=== PATIENT | male | born 1955 | race Caucasian/White ===

== ENCOUNTER 2017-06-16 07:21 | Inpatient (IN) | payer OTHER ==
[~2017-06-16] VITALS: Ht 172.7 cm; Wt 132.0 kg
[2017-06-16 08:01] LABS: BASOPHIL (%) 0.6 % (0-1); EOSINOPHIL (%) 3.2 % (0-5); EOSINOPHIL COUNT 0.2 K/uL (0-0.3); HEMATOCRIT 39.6 % (38.0-50.0); HEMOGLOBIN 13.2 G/DL (12.5-16.6); IMMATURE GRANULOCYTE (%) 0.4 % (0.0-0.7); LYMPHOCYTE (%) 17.9 % (15-42); LYMPHOCYTE COUNT 0.9 K/uL (1.0-2.8); MCH 28.6 PG (29.0-34.0); MCHC 33.3 G/DL (30.0-36.0); MCV 85.7 FL (86-99); MONOCYTE (%) 10.7 % (3-12); MONOCYTE COUNT 0.5 K/uL (0-0.8); NEUTROPHIL (%) 67.2 % (45-76); NEUTROPHIL COUNT 3.4 K/uL (1.8-6.4); PLATELET COUNT 138 K/uL (156-360); RBC DIS.WIDTH-CV 16.9 % (11.8-14.6); RBC DIS.WIDTH-SD 53.1 % (39-53); RED BLOOD COUNT 4.62 M/uL (4.00-5.50)
[2017-06-16 08:05] LABS: INTER. NORMALIZED RATIO 1.5
[2017-06-16 08:08] LABS: PTT 34.6 SEC (25-37)
[2017-06-16 08:11] LABS: CHLORIDE 100 mEq/L (99-109); POTASSIUM 3.4 mEq/L (3.7-5.4); SODIUM 134 mEq/L (136-147)
[2017-06-16 08:13] LABS: GLUCOSE 142 mg/dL (70-99)
[2017-06-16 08:17] LABS: CREATININE 0.8 mg/dL (0.6-1.3)
[2017-06-16 08:18] LABS: UREA NITROGEN (BUN) 11 mg/dL (9-23)
[2017-06-16 08:21] LABS: TROP-I INTERPRETATION NEGATIVE; TROPONIN-I 0.02 ng/mL (0.0-0.30)
[2017-06-16 08:23] LABS: GFR ESTIMATE (CALCULATED) > 59 mL/min/ (58.99-99999)
[2017-06-16 11:00] LABS: APPEARANCE CLEAR ((CLEAR)); BILIRUBIN NEGATIVE; BLOOD SMALL; COLOR COLORLESS ((YELLOW)); GLUCOSE (STRIP) NEGATIVE; KETONES NEGATIVE; LEUKOCYTES NEGATIVE; NITRITE NEGATIVE; PROTEIN (STRIP) NEGATIVE; SPECIFIC GRAVITY 1.004 (1.000-1.030); UROBILINOGEN 0.2 MG/DL (0.2-1.0)
[2017-06-16 11:03] LABS: BACTERIA NONE SEEN /HPF; EPITHELIAL CELLS RARE /HPF; MUCUS NONE SEEN /LPF; RED BLOOD CELLS 0-5 /HPF (0-5); UCUL ADDED? NO; WHITE BLOOD CELLS NONE SEEN /HPF (0-5)
[2017-06-16] MEDS ORDERED: LOSARTAN-HCTZ1 EAC2 PO (11:18)
[2017-06-16] MEDS ORDERED: FUROSEMIDE80 MG PO (11:18)
[2017-06-16] MEDS ORDERED: CARVEDILOL25 MG PO (11:18)
[2017-06-16] MEDS ORDERED: METFORMIN HCL500 MG PO (11:18)
[2017-06-16 20:45] VITALS: BP 140/87
[2017-06-16 21:00] VITALS: BP 140/87
[2017-06-17 00:33] VITALS: BP 135/80
[2017-06-17 04:09] VITALS: BP 130/77
[2017-06-17 05:14] LABS: HEMATOCRIT 38.4 % (38.0-50.0); HEMOGLOBIN 12.4 G/DL (12.5-16.6); MCHC 32.3 G/DL (30.0-36.0); MCV 86.7 FL (86-99); PLATELET COUNT 146 K/uL (156-360); RBC DIS.WIDTH-CV 16.9 % (11.8-14.6); RBC DIS.WIDTH-SD 54.6 % (39-53); RED BLOOD COUNT 4.43 M/uL (4.00-5.50); WHITE BLOOD COUNT 4.7 K/uL (4.1-10.2)
[2017-06-17 05:49] LABS: CHLORIDE 98 MEQ/L (99-109); CREATININE 0.9 MG/DL (0.6-1.3); GFR ESTIMATE (CALCULATED) > 59 mL/min/ (58.99-99999); GLUCOSE 112 mg/dL (70-99); POTASSIUM 3.3 MEQ/L (3.7-5.4); UREA NITROGEN (BUN) 12 mg/dL (9-23)
[2017-06-17 05:51] LABS: SODIUM 141 MEQ/L (136-147)
[2017-06-17 08:10] VITALS: BP 132/92
[2017-06-17 12:06] VITALS: BP 139/87
[2017-06-17 14:31] LABS: TROP-I INTERPRETATION NEGATIVE; TROPONIN-I 0.01 ng/mL (0.0-0.30)
[2017-06-17 16:35] VITALS: BP 122/79
[2017-06-17 23:44] VITALS: BP 107/55
[2017-06-18 04:22] VITALS: BP 138/76
[2017-06-18 05:17] LABS: HEMATOCRIT 40.5 % (38.0-50.0); HEMOGLOBIN 13.1 G/DL (12.5-16.6); MCH 27.8 PG (29.0-34.0); MCHC 32.3 G/DL (30.0-36.0); PLATELET COUNT 174 K/uL (156-360); RBC DIS.WIDTH-CV 16.7 % (11.8-14.6); RBC DIS.WIDTH-SD 53.1 % (39-53); RED BLOOD COUNT 4.71 M/uL (4.00-5.50); WHITE BLOOD COUNT 4.7 K/uL (4.1-10.2)
[2017-06-18 05:45] LABS: CHLORIDE 98 MEQ/L (99-109); CREATININE 0.9 MG/DL (0.6-1.3); GFR ESTIMATE (CALCULATED) > 59 mL/min/ (58.99-99999); GLUCOSE 126 mg/dL (70-99); POTASSIUM 3.1 MEQ/L (3.7-5.4); SODIUM 141 MEQ/L (136-147); UREA NITROGEN (BUN) 18 mg/dL (9-23)
[2017-06-18 06:22] LABS: ABS NEUTROPHIL COUNT 3.3; ANISOCYTOSIS 1+; ATYPICAL LYMPHOCYTE 1.7 %; BAND NEUTROPHILS 4.4 % (0-8.0); BASOPHILS 0.9 %; EOSINOPHIL ABS CT 0; EOSINOPHILS 0.9 % (0-5.0); LYMPHOCYTES 22.8 % (15.0-45.0); MONOCYTES 4.4 % (0-9.0); PLAT.SUFFICIENCY ADEQUATE; SEG.NEUTROPHILS 64.9 % (46.0-76.0)
[2017-06-18 07:34] VITALS: BP 124/80
[2017-06-18 12:04] VITALS: BP 110/63
[2017-06-18 15:09] VITALS: BP 104/68
[2017-06-18] MEDS ORDERED: ELIQUIS5 MG PO (15:34)
[2017-06-18] MEDS ORDERED: FUROSEMIDE80 MG PO (15:34)
[2017-06-18] MEDS ORDERED: LEVOFLOXACIN750 MG PO (15:34)
[2017-06-18] MEDS ORDERED: CARDIZEM CD180 MG PO (16:00)
== END 2017-06-18 17:12 | disposition home or self-care (01) | DRG 291 ==
LOC: EME 07:21 → 4EAST 09:21 → EDOF 09:21 → ENRESERV 09:22 → EDOF 09:56 → ENRESERV 19:46 → 4EAST 20:50
PROVIDERS: Emergency Medicine; Internal Medicine; Internal Medicine Cardiovascular Disease
DX: I11.0 Hypertensive heart disease with heart failure (principal); I50.33 Acute on chronic diastolic (congestive) heart failure; J96.01 Acute respiratory failure with hypoxia; D69.6 Thrombocytopenia, unspecified; E87.1 Hypo-osmolality and hyponatremia; I48.91 Unspecified atrial fibrillation; J20.9 Acute bronchitis, unspecified; E87.6 Hypokalemia; E78.5 Hyperlipidemia, unspecified; E11.9 Type 2 diabetes mellitus without complications; E66.01 Morbid (severe) obesity due to excess calories; Z68.42 Body mass index [BMI] 45.0-49.9, adult; Z79.84 Long term (current) use of oral hypoglycemic drugs; Z23 Encounter for immunization; Z98.84 Bariatric surgery status
CPT/HCPCS: 71045; 80048; 81003; 82948; 83735; 83880; 84443; 84484; 85025; 85027; 85610; 85730; 87070; 87205; 87502; 90686; 93005; 93306; 94640; 94640 76; 94760; 94799; 99202; 99281; 99285; J1940; J7644